=== PATIENT | female | born 1980 | race Caucasian/White ===

== ENCOUNTER 2017-03-08 05:04 | Emergency (ER) | payer OTHER ==
[2017-03-08] MEDS ORDERED: PROMETHAZINE HCL 25 MG/ML INJ IVP ONE (05:10)
[2017-03-08] MEDS ORDERED: FAMOTIDINE 20 MG/NACL 50 ML IV ONE (05:10)
[2017-03-08] MEDS ORDERED: NS 1,000 ML IV ONE ×2 (05:10)
--- NOTE | 2017-03-08 05:17 | CPEKG ---
Heart Rate: 51 RR Interval: 1176 P-R Interval: 208 QRSD Interval: 92 QT Interval: 460 QTC Interval: 424 P Rosie: 66 QRS Rosie: 69 T Wave Rosie: 47 EKG Severity - NORMAL ECG - EKG Impression: SINUS RHYTHM Electronically Signed By: Rebecca Mota 08-Mar-2017 06:19:45
[2017-03-08] MEDS ORDERED: MAG HYDROX/AL HYDROX/SIMETH 30 ML UDCUP PO ONE (05:22)
--- NOTE | 2017-03-08 05:22 | EDPHY ---
H & P Time Seen by Provider: 03/08/17 05:10 HPI/ROS: HPI The patient presents brought in by ambulance for abdominal pain, nausea and vomiting which began at about 1:00 a.m.. Last night, she went out to dinner and had about 3 alcoholic drinks. She awoke with this pain which is in her epigastric region, radiates toward her back, is crampy and achy in nature and is severe. She then began vomiting. She denies any dark or bloody stools. She has a history of gastric ulcer. She is status post cholecystectomy when she was 24. In the ambulance, she was given Zofran with little improvement in her symptoms. She was noted to be bradycardic in the 30s transiently. REVIEW OF SYSTEMS Constitutional: No fever, no chills. Eyes: No discharge. ENT: No sore throat. Cardiovascular: No chest pain, no palpitations. Respiratory: No cough, no shortness of breath. Gastrointestinal: See HPI Genitourinary: No hematuria. Musculoskeletal: No back pain. Skin: No rashes. Neurological: No headache. PMHx: Reports history of SLE, mixed connective tissue disease, fibromyalgia, gastric ulcers, cholecystectomy complicated by retained common bile duct stone in [place] Soc Hx: Housed, occasional alcohol use, smoking history, uses marijuana PHYSICAL General Appearance: Alert, uncomfortable appearing, writhing in the gurney Eyes: Pupils equal and round no pallor or injection ENT, Mouth: Mucous membranes moist Respiratory: There are no retractions, lungs are clear to auscultation Cardiovascular: Regular rate and rhythm Gastrointestinal: Abdomen is soft with tenderness in the epigastrium without any rebound or guarding Neurological: A&O, moves all extremities Skin: Warm and dry, no rashes Musculoskeletal: Neck is supple non tender Extremities: symmetrical, full range of motion Psychiatric: Patient is oriented X 3, there is no agitation Source: Patient, EMS Exam Limitations: No limitations Constitutional: Initial Vital Signs Temperature (C) 36.4 C 03/08/17 05:10 Heart Rate 47 L 03/08/17 05:10 Respiratory Rate 18 03/08/17 05:10 Blood Pressure 131/87 H 03/08/17 05:10 O2 Sat (%) 98 03/08/17 05:10 O2 Delivery Mode Nasal Cannula O2 (L/minute) 2 Allergies/Adverse Reactions: Penicillins Allergy (Verified 03/08/17 05:12) Home Medications: Medication Instructions Recorded Buprenorphine 03/08/17 Medical Decision Making Differential Diagnosis: This is a 36-year-old female with multiple medical problems including gastric ulcer, status post cholecystectomy who presents with severe abdominal pain after drinking alcohol. On exam, she has normal vital signs, she is tender in the epigastrium without rebound or guarding. Differential diagnosis includes gastritis, pancreatitis, perforated ulcer. In the emergency department, the patient was given IV fluids for her vomiting and antiemetics as well as pain medications. This caused complete resolution of her symptoms. Labs were checked and did reveal a mild transaminitis, otherwise normal. She eventually felt well enough to go home. She declines any medications. She will follow up with her general accountant. - Data Points Laboratory Results: Laboratory Results 03/08/17 05:20 03/08/17 05:20 03/08/17 03/08/17 05:20 05:20 WBC 7.01 10^3/uL 10^3/uL (3.80-9.50) RBC 4.44 10^6/uL 10^6/uL (4.18-5.33) Hgb 13.9 g/dL g/dL (12.6-16.3) Hct 39.5 % % (38.0-47.0) MCV 89.0 fL fL (81.5-99.8) MCH 31.3 pg pg (27.9-34.1) MCHC 35.2 g/dL g/dL (32.4-36.7) RDW 13.5 % % (11.5-15.2) Plt Count 209 10^3/uL 10^3/uL (150-400) MPV 10.0 fL fL (8.7-11.7) Neut % (Auto) 74.0 % % (39.3-74.2) Lymph % (Auto) 20.0 % % (15.0-45.0) [place] % (Auto) 4.3 % L % (4.5-13.0) Eos % (Auto) 0.7 % % (0.6-7.6) Baso % (Auto) 0.9 % % (0.3-1.7) Nucleat RBC Rel Count 0.0 % % (0.0-0.2) Absolute Neuts (auto) 5.19 10^3/uL 10^3/uL (1.70-6.50) Absolute Lymphs (auto) 1.40 10^3/uL 10^3/uL (1.00-3.00) Absolute Monos (auto) 0.30 10^3/uL 10^3/uL (0.30-0.80) Absolute Eos (auto) 0.05 10^3/uL 10^3/uL (0.03-0.40) Absolute Basos (auto) 0.06 10^3/uL 10^3/uL (0.02-0.10) Absolute Nucleated RBC 0.00 10^3/uL 10^3/uL (0-0.01) Immature Gran % 0.1 % % (0.0-1.1) Immature Gran # 0.01 10^3/uL 10^3/uL (0.00-0.10) Sodium 141 mEq/L mEq/L (134-144) Potassium 4.4 mEq/L mEq/L (3.5-5.2) Chloride 109 mEq/L mEq/L (97-110) Carbon Dioxide 19 mEq/l L mEq/l (22-31) Anion Gap 13 mEq/L mEq/L (8-16) BUN 13 mg/dL mg/dL (7-23) Creatinine 0.7 mg/dL mg/dL (0.6-1.0) Estimated GFR > 60 Glucose 96 mg/dL mg/dL (70-100) Calcium 9.5 mg/dL mg/dL (8.5-10.4) Total Bilirubin 0.3 mg/dL mg/dL (0.1-1.4) Conjugated Bilirubin 0.2 mg/dL mg/dL (0.0-0.5) Unconjugated Bilirubin 0.1 mg/dL mg/dL (0.0-1.1) AST 48 IU/L H IU/L (14-46) ALT 73 IU/L H IU/L (9-52) Alkaline Phosphatase 48 IU/L IU/L (38-126) Total Protein 7.3 g/dL g/dL (6.3-8.2) Albumin 4.5 g/dL g/dL (3.5-5.0) Lipase 106 IU/L IU/L (23-300) Medications Given: Discontinued Medications Al Hydroxide/Mg Hydroxide (Maalox Susp) 30 ml PO EDNOW ONE Stop: 03/08/17 05:23 Last Admin: 03/08/17 05:41 Dose: 30 ml Haloperidol Lactate (Haldol Injection) 2.5 mg IVP EDNOW ONE Stop: 03/08/17 05:30 Last Admin: 03/08/17 05:31 Dose: 2.5 mg Hydromorphone HCl (Dilaudid) 0.5 mg IVP EDNOW ONE Stop: 03/08/17 06:18 Last Admin: 03/08/17 06:18 Dose: 0.5 mg Hydromorphone HCl (Dilaudid) 0.5 mg IVP EDNOW ONE Stop: 03/08/17 06:40 Last Admin: 03/08/17 06:39 Dose: 0.5 mg Sodium Chloride (Ns) 1,000 mls @ 0 mls/hr IV EDNOW ONE; Wide Open PRN Reason: Protocol Stop: 03/08/17 05:11 Last Admin: 03/08/17 05:34 Dose: 1,000 mls Sodium Chloride (Ns) 1,000 mls @ 0 mls/hr IV EDNOW ONE; Wide Open PRN Reason: Protocol Stop: 03/08/17 05:11 Last Admin: 03/08/17 05:35 Dose: 1,000 mls Famotidine/Sodium Chloride (Pepcid 20 Mg (Premix)) 50 mls @ 200 mls/hr IV EDNOW ONE Stop: 03/08/17 05:24 Last Admin: 03/08/17 05:27 Dose: 50 mls Lidocaine (Lidocaine 2% Viscous) 5 ml PO EDNOW ONE Stop: 03/08/17 05:45 Last Admin: 03/08/17 05:45 Dose: 5 ml Promethazine HCl (Phenergan) 12.5 mg IVP EDNOW ONE Stop: 03/08/17 05:11 Last Admin: 03/08/17 05:26 Dose: 12.5 mg Departure - Departure Disposition: Home, Routine, Self-Care Clinical Impression: Upper abdominal pain Vomiting Qualifiers: Vomiting type: unspecified Vomiting Intractability: non-intractable Nausea presence: with nausea Qualified Code(s): R11.2 - Nausea with vomiting, unspecified Condition: Good Instructions: Gastritis (ED), Diet for Stomach Ulcers and Gastritis (ED) Additional Instructions: It seems that your pain is coming from her stomach. This could be caused by gastritis or stomach ulcer. You should avoid spicy or acidic foods and alcohol. You should also avoid coffee. You should follow up with your general accountant in the next few days. Please return to the emergency room if your worse in any way. You can take Tums or Maalox [id number] to help with your symptoms. Referrals: Gastroenterology [facility] [Provider Group] - As per Instructions
[2017-03-08] MEDS ORDERED: LIDOCAINE 2% VISCOUS 15 ML UDCUP ONE (05:23)
[2017-03-08] MEDS ORDERED: MAG HYDROX/AL HYDROX/SIMETH 30 ML UDCUP ONE (05:23)
[2017-03-08 05:27] LABS: % IMMATURE GRANULYOCYTES 0.1 % (0.0-1.1); ABSOLUTE IMMATURE GRANULOCYTES 0.01 10^3/uL (0.00-0.10); ADD DIFF? NO; ADD MORPH? NO; ADD SCAN? NO; ATYPICAL LYMPHOCYTE FLAG 10 (0-99); FRAGMENT RBC FLAG 0 (0-99); HEMATOCRIT 39.5 % (38.0-47.0); HEMOGLOBIN 13.9 g/dL (12.6-16.3); LEFT SHIFT FLG 0 (0-99); LIPEMIA HEMOLYSIS FLAG 90 (0-99); MEAN CELL HEMOGLOBIN 31.3 pg (27.9-34.1); MEAN CELL HEMOGLOBIN CONCENTR. 35.2 g/dL (32.4-36.7); PLATELET CLUMPS FLAG 0 (0-99); PLATELET COUNT 209 10^3/uL (150-400); RED BLOOD CELL COUNT 4.44 10^6/uL (4.18-5.33); RED CELL DISTRIBUTION WIDTH 13.5 % (11.5-15.2)
[2017-03-08] MEDS ORDERED: HALOPERIDOL LACT 5 MG/ML INJ IVP ONE (05:29)
[2017-03-08] MEDS ORDERED: HALOPERIDOL LACT 5 MG/ML INJ ONE (05:29)
[2017-03-08 05:39] LABS: ALANINE AMINOTRANSFERASE 73 IU/L (9-52); ALBUMIN 4.5 g/dL (3.5-5.0); ALKALINE PHOSPHATASE 48 IU/L (38-126); ANION GAP 13 mEq/L (8-16); ASPARTATE AMINOTRANSFERASE 48 IU/L (14-46); BILIRUBIN,TOTAL 0.3 mg/dL (0.1-1.4); BILIRUBIN-CONJUGATED 0.2 mg/dL (0.0-0.5); BILIRUBIN-UNCONJUGATED 0.1 mg/dL (0.0-1.1); CALCIUM 9.5 mg/dL (8.5-10.4); CARBON DIOXIDE 19 mEq/l (22-31); CHLORIDE 109 mEq/L (97-110); CREATININE 0.7 mg/dL (0.6-1.0); GLOMERULAR FILTRATION RATE > 60; GLUCOSE 96 mg/dL (70-100); POTASSIUM 4.4 mEq/L (3.5-5.2); SODIUM 141 mEq/L (134-144); TOTAL PROTEIN 7.3 g/dL (6.3-8.2)
[2017-03-08] MEDS ORDERED: LIDOCAINE 2% VISCOUS 15 ML UDCUP PO ONE (05:44)
[2017-03-08 05:47] VITALS: RESP 16
[2017-03-08] MEDS ORDERED: HYDROmorphONE/DILAUDID 1 MG/ML INJ ONE (06:14)
[2017-03-08] MEDS ORDERED: HYDROmorphONE/DILAUDID 1 MG/ML INJ IVP ONE ×2 (06:17→06:39)
[2017-03-08 06:55] VITALS: BP 106/69; PULSE 63; TEMP 98.1; O2SAT 97
== END 2017-03-08 06:56 | disposition home or self-care (01) ==
LOC: EDUNIT#
DX: R11.2 Nausea with vomiting, unspecified (principal); R10.10 Upper abdominal pain, unspecified; E86.9 Volume depletion, unspecified
CPT/HCPCS: 96365; J1170; J2550

== ENCOUNTER 2017-07-19 09:35 | Emergency (ER) | payer OTHER ==
[2017-07-19] MEDS ORDERED: NS 1,000 ML IV ONE (09:55)
--- NOTE | 2017-07-19 09:59 | CPEKG ---
Heart Rate: 74 RR Interval: 811 P-R Interval: 176 QRSD Interval: 98 QT Interval: 412 QTC Interval: 457 P Napoleon: 65 QRS Napoleon: 71 T Wave Napoleon: 19 EKG Severity - NORMAL ECG - EKG Impression: SINUS RHYTHM Electronically Signed By: Brando Holley 21-Jul-2017 06:08:05
[2017-07-19 10:02] LABS: PLATELET COUNT 259 10^3/uL (150-400)
[2017-07-19] MEDS ORDERED: LIDOCAINE 2% VISCOUS 15 ML UDCUP ONE (10:02)
[2017-07-19] MEDS ORDERED: HYOSCYAMINE SULFATE 0.125 MG TAB ONE (10:02)
[2017-07-19] MEDS ORDERED: ONDANSETRON 4 MG/2 ML VIAL ONE (10:02)
[2017-07-19] MEDS ORDERED: MAG HYDROX/AL HYDROX/SIMETH 30 ML UDCUP ONE (10:02)
[2017-07-19] MEDS ORDERED: HYOSCYAMINE SULFATE 0.125 MG TAB PO ONE (10:07)
[2017-07-19] MEDS ORDERED: LIDOCAINE 2% VISCOUS 15 ML UDCUP PO ONE (10:07)
[2017-07-19] MEDS ORDERED: MAG HYDROX/AL HYDROX/SIMETH 30 ML UDCUP PO ONE (10:07)
[2017-07-19] MEDS ORDERED: ONDANSETRON 4 MG/2 ML VIAL IVP ONE (10:07)
[2017-07-19] MEDS ORDERED: PROMETHAZINE HCL 25 MG/ML INJ IVP ONE (10:28)
--- NOTE | 2017-07-19 10:37 | EDPHY ---
HPI/HX/ROS/PE/MDM Narrative: CHIEF COMPLAINT: Vomiting, abdominal pain HPI: The patient is a 37 y/o female who has a history of mixed connective tissue disorder and several autoimmune diseases who presents with persistent projectile vomiting onset this morning. Her connective tissue issues have GI involvement and has led to bowel obstructions and ulcers in the past. She discontinued all medications over a year ago and is "using holistic measures and pot" only with some control of her symptoms. Over the past few days she has felt bloated and uncomfortable and reduced her food intake, but this morning she developed projectile vomiting, hot flashes, and epigastric pain. She has had numerous episodes of vomiting and dry heaving over the last few hours. She took 60mg Nexium this morning without improvement in symptoms. She denies fever , hematemesis, urinary symptoms, diarrhea. She has had similar symptoms previously and was treated successfully with GI cocktails and antiemetics. REVIEW OF SYSTEMS: Aside from elements discussed in the HPI, a comprehensive 10-point review of systems was reviewed and is negative. PMH: Mixed connective tissue disease with multiple autoimmune diseases with GI involvement leading to bowel obstructions, ulcers, and other issues. IBD. 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 PHYSICAL EXAM: General:Patient is alert, appears uncomfortable. ENT:Eyes are normal to inspection. ENT inspection normal. Neck: Normal inspection. Full range of motion. Respiratory:No respiratory distress. Breath sounds normal bilaterally. Cardiovascular: Regular rate and rhythm. Strong peripheral pulses. Normal cap refill. Abdomen:The abdomen has diffuse mild tenderness to palpation. There are no peritoneal signs. Back: Normal to inspection. No tenderness to palpation. Skin: Normal color. No rash. Warm and dry. Extremities: Normal appearance. Full range of motion. Neuro: Oriented x3. Normal motor function. Normal sensory function. ED Course: This is a 37 y/o female with a mixed connective tissue disorder who presents with several days of abdominal bloating and a few hours of projectile vomiting and epigastric pain. She has mild diffuse abdominal tenderness on exam. She reports her symptoms are consistent with past exacerbations of her multiple ("15 ") autoimmune diseases and is requesting symptomatic treatment. Plan for IV, labs, EKG, abdominal x-ray, and symptom management with GI cocktail, 4mg IV Zofran, and 1L IV NS. The 12 lead EKG was interpreted by myself. Sinus rhythm rate 74. See hard copy and/or "tracemaster" electronic copy for interpretation. 12.5mg IV Phenergan ordered for continued nausea and vomiting. Reassessed patient and discussed work up. She is feeling much better. Her abdomen is benign. Her abdominal x-ray shows no clear obstruction and labs are unremarkable. She will be discharged with a script for Zofran. Recommended follow up with her GI doctor. Return precautions discussed. She is comfortable with discharge plan. MDM: This patient presents with acute on chronic abdominal pain and vomiting similar to prior episodes. She is hesitant to go undergo extensive workup and requests that we focus on symptom management here in the emergency department. She did agree to an x-ray. We were able to achieve good symptomatic control with IV fluids, antiemetics and pain medicine. The patient requests discharge from the ER without further workup. - Data Points Imaging Results: Imaging Impressions Abdomen X-Ray 07/19/17 11:36 Impression: Mildly abnormal bowel gas pattern with no free air identified. Imaging: I viewed and interpreted images myself Laboratory Results: Laboratory Results 07/19/17 09:50 07/19/17 09:50 07/19/17 07/19/17 07/19/17 09:50 09:50 09:50 WBC 7.29 10^3/uL 10^3/uL (3.80-9.50) RBC 5.08 10^6/uL 10^6/uL (4.18-5.33) Hgb 16.1 g/dL g/dL (12.6-16.3) Hct 45.0 % % (38.0-47.0) MCV 88.6 fL fL (81.5-99.8) MCH 31.7 pg pg (27.9-34.1) MCHC 35.8 g/dL g/dL (32.4-36.7) RDW 13.2 % % (11.5-15.2) Plt Count 259 10^3/uL 10^3/uL (150-400) MPV 9.6 fL fL (8.7-11.7) Neut % (Auto) 67.6 % % (39.3-74.2) Lymph % (Auto) 22.2 % % (15.0-45.0) [place] % (Auto) 7.0 % % (4.5-13.0) Eos % (Auto) 1.5 % % (0.6-7.6) Baso % (Auto) 1.4 % % (0.3-1.7) Nucleat RBC Rel Count 0.0 % % (0.0-0.2) Absolute Neuts (auto) 4.93 10^3/uL 10^3/uL (1.70-6.50) Absolute Lymphs (auto) 1.62 10^3/uL 10^3/uL (1.00-3.00) Absolute Monos (auto) 0.51 10^3/uL 10^3/uL (0.30-0.80) Absolute Eos (auto) 0.11 10^3/uL 10^3/uL (0.03-0.40) Absolute Basos (auto) 0.10 10^3/uL 10^3/uL (0.02-0.10) Absolute Nucleated RBC 0.00 10^3/uL 10^3/uL (0-0.01) Immature Gran % 0.3 % % (0.0-1.1) Immature Gran # 0.02 10^3/uL 10^3/uL (0.00-0.10) Sodium 142 mEq/L mEq/L (135-145) Potassium 5.7 mEq/L H mEq/L (3.5-5.2) Chloride 105 mEq/L mEq/L (97-110) Carbon Dioxide 18 mEq/l L mEq/l (22-31) Anion Gap 19 mEq/L H mEq/L (8-16) BUN 9 mg/dL mg/dL (7-23) Creatinine 0.7 mg/dL mg/dL (0.6-1.0) Estimated GFR > 60 Glucose 102 mg/dL H mg/dL (70-100) Calcium 10.4 mg/dL mg/dL (8.5-10.4) Total Bilirubin 1.1 mg/dL mg/dL (0.1-1.4) Conjugated Bilirubin 0.6 mg/dL H mg/dL (0.0-0.5) Unconjugated Bilirubin 0.5 mg/dL mg/dL (0.0-1.1) AST 60 IU/L H IU/L (14-46) ALT 63 IU/L H IU/L (9-52) Alkaline Phosphatase 58 IU/L IU/L (38-126) Total Protein 8.3 g/dL H g/dL (6.3-8.2) Albumin 5.5 g/dL H g/dL (3.5-5.0) Lipase 59 IU/L IU/L (23-300) Beta HCG, Qual NEGATIVE Specimen Hemolysis 127 Medications Given: Discontinued Medications Al Hydroxide/Mg Hydroxide (Maalox Susp) 30 ml PO EDNOW ONE Stop: 07/19/17 10:08 Last Admin: 07/19/17 10:10 Dose: 30 ml Hyoscyamine Sulfate (Levsin, Hyomax-Sl) 0.25 mg PO EDNOW ONE Stop: 07/19/17 10:08 Last Admin: 07/19/17 10:08 Dose: 0.25 mg Sodium Chloride (Ns) 1,000 mls @ 0 mls/hr IV EDNOW ONE; Wide Open PRN Reason: Protocol Stop: 07/19/17 09:56 Last Admin: 07/19/17 10:08 Dose: 1,000 mls Lidocaine (Lidocaine 2% Viscous) 5 ml PO EDNOW ONE Stop: 07/19/17 10:08 Last Admin: 07/19/17 10:09 Dose: 5 ml Ondansetron HCl (Zofran) 4 mg IVP EDNOW ONE Stop: 07/19/17 10:08 Last Admin: 07/19/17 10:08 Dose: 4 mg Promethazine HCl (Phenergan) 12.5 mg IVP EDNOW ONE Stop: 07/19/17 10:29 Last Admin: 07/19/17 10:54 Dose: 12.5 mg General Time Seen by Provider: 07/19/17 09:54 Initial Vital Signs: Initial Vital Signs Temperature (C) 36.5 C 07/19/17 09:35 Heart Rate 80 07/19/17 09:35 Respiratory Rate 24 H 07/19/17 09:35 Blood Pressure 130/81 H 07/19/17 09:35 O2 Sat (%) 96 07/19/17 09:35 O2 Delivery Mode Room Air Allergies/Adverse Reactions: Penicillins Allergy (Mild, Verified 07/19/17 09:39) Rash Home Medications: Medication Instructions Recorded Butran Patch 07/19/17 Ondansetron Odt [Zofran Odt] 4 mg PO Q4PRN PRN #10 tab 07/19/17 Departure - Departure Disposition: Home, Routine, Self-Care Clinical Impression: Abdominal pain, Vomiting Condition: Good Instructions: Ondansetron (By mouth), Acute Nausea and Vomiting (ED), Abdominal Pain (ED) Additional Instructions: 1. Take Zofran as prescribed when needed for nausea and vomiting. 2. Follow up with your roll coverer in the next week. 3. Return to the ED for severe pain, inability to eat, intractable vomiting, inability to have a bowel movement, or other worsening of condition. Referrals: NONE *PRIMARY CARE P,. [Primary Care Provider] - As per Instructions Carlos Wood MD [Medical Doctor] - As per Instructions Prescriptions: Ondansetron Odt [Zofran Odt] 4 mg PO Q4PRN PRN #10 tab PRN Reason: Nausea Report Scribed for: Phillip Hoffmann Report Scribed by: Lilli Pena Date of Report: 07/19/17 Time of Report: 11:13 Physician Review and Approval Statement: Portions of this note were transcribed by an ED scribe. I personally performed the history, physical exam, and medical decision making; and confirm the accuracy of the information in the transcribed note.
[2017-07-19 12:34] VITALS: BP 108/80; PULSE 58; RESP 16; TEMP 98.4; O2SAT 94
== END 2017-07-19 12:36 | disposition home or self-care (01) ==
DX: R10.84 Generalized abdominal pain (principal); R11.10 Vomiting, unspecified; E86.9 Volume depletion, unspecified
CPT/HCPCS: 96374; J2405; J2550

== ENCOUNTER 2018-09-05 02:49 | Emergency (ER) | payer OTHER ==
[2018-09-05] MEDS ORDERED: ONDANSETRON 4 MG/2 ML VIAL ONE (03:31)
[2018-09-05] MEDS ORDERED: ONDANSETRON 4 MG/2 ML VIAL IVP ONE ×2 (03:38→06:11)
[2018-09-05] MEDS ORDERED: NS 1,000 ML IV ONE (03:38)
[2018-09-05 03:49] LABS: PLATELET COUNT 208 10^3/uL (150-400)
[2018-09-05] MEDS ORDERED: FAMOTIDINE 20 MG/2 ML SDV IVP ONE (04:07)
[2018-09-05] MEDS ORDERED: HYOSCYAMINE SULFATE 0.125 MG TAB PO ONE (04:07)
[2018-09-05] MEDS ORDERED: MAG HYDROX/AL HYDROX/SIMETH 30 ML UDCUP PO ONE (04:07)
[2018-09-05] MEDS ORDERED: LIDOCAINE 2% VISCOUS 15 ML UDCUP PO ONE (04:07)
--- NOTE | 2018-09-05 04:10 | EDPHY ---
H & P Stated Complaint: Abdominal Pain N/V Time Seen by Provider: 09/05/18 03:53 HPI/ROS: HPI The patient presents with abdominal pain, nausea and vomiting for the last 2 days, getting progressively worse. He describes epigastric cramping pain which radiates throughout her back associated with abdominal bloating. She has had nonbloody nonbilious emesis with this. She was in the emergency department on July 19 for similar and improved with symptomatic relief. 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 She reports that she has multiple autoimmune diseases and is being followed by a natural path now and has been well managed for the last 4.5 years. REVIEW OF SYSTEMS 10 systems were reviewed and negative with the exception of the elements mentioned in the history of present illness. PMHx: Reported multiple autoimmune diseases including mixed connective tissue disease, autoimmune pancreatitis Soc Hx: Here with her partner, uses marijuana to control her symptoms PHYSICAL General Appearance: Alert, shaking in pain Eyes: Pupils equal and round no pallor or injection ENT, Mouth: Mucous membranes moist Respiratory: There are no retractions, lungs are clear to auscultation Cardiovascular: Regular rate and rhythm Gastrointestinal: Abdomen is soft, mildly distended, tender in the epigastrium without rebound or guarding Neurological: A&O, moves all extremities Skin: Warm and dry, no rashes Musculoskeletal: Neck is supple non tender Extremities: symmetrical, full range of motion Psychiatric: Patient is oriented X 3, there is no agitation Source: Patient Exam Limitations: No limitations - Personal History LMP (Females 10-55): 1-7 Days Ago Current Tetanus/Diphtheria Vaccine: Yes Current Tetanus Diphtheria and Acellular Pertussis (TDAP): Yes - Medical/Surgical History Hx Asthma: No Hx Chronic Respiratory Disease: No Hx Diabetes: No Hx Cardiac Disease: No Hx Renal Disease: No Hx Cirrhosis: No Hx Alcoholism: No Hx HIV/AIDS: No Hx Splenectomy or Spleen Trauma: No Other PMH: "auto immune issues", GI issues, diverticulitis by hx,choley, ulcers - Social History Smoking Status: Current every day smoker Constitutional: Initial Vital Signs Temperature (C) 37.3 C 09/05/18 02:53 Heart Rate 76 09/05/18 02:53 Respiratory Rate 18 09/05/18 02:53 Blood Pressure 134/67 H 09/05/18 02:53 O2 Sat (%) 95 09/05/18 02:53 O2 Delivery Mode Room Air Allergies/Adverse Reactions: Penicillins Allergy (Mild, Verified 07/19/17 09:39) Rash Home Medications: Medication Instructions Recorded BUPRENORPHINE HCL 09/05/18 Medical Decision Making Differential Diagnosis: 38-year-old female with reported history of autoimmune disease, autoimmune pancreatitis, IBD, status post cholecystectomy who presents from home with 2 days of abdominal pain, nausea, vomiting. Here, she is uncomfortable appearing though vital signs are normal. She does have epigastric tenderness. Prior to my assessment she has received fluids and Zofran with some improvement in her symptoms. She requests a GI cocktail. Differential diagnosis includes gastritis, pancreatitis, IBD, choledocholithiasis. Patient was given GI cocktail and famotidine with much improvement in her symptoms. Labs were reviewed and were unremarkable. I suspect she may be suffering from gastritis, though would also consider cannabinoid hyperemesis syndrome. She feels well enough to go home though requests a 2nd dose of Dilaudid. I feel this is reasonable. Her repeat abdominal exam was benign. - Data Points Laboratory Results: Laboratory Results 09/05/18 03:30 09/05/18 03:30 09/05/18 09/05/18 09/05/18 03:30 03:30 03:30 WBC 11.95 10^3/uL H 10^3/uL (3.80-9.50) RBC 4.34 10^6/uL 10^6/uL (4.18-5.33) Hgb 13.1 g/dL g/dL (12.6-16.3) Hct 37.5 % L % (38.0-47.0) MCV 86.4 fL fL (81.5-99.8) MCH 30.2 pg pg (27.9-34.1) MCHC 34.9 g/dL g/dL (32.4-36.7) RDW 14.0 % % (11.5-15.2) Plt Count 208 10^3/uL 10^3/uL (150-400) MPV 10.2 fL fL (8.7-11.7) Neut % (Auto) 83.4 % H % (39.3-74.2) Lymph % (Auto) 9.9 % L % (15.0-45.0) [place] % (Auto) 5.6 % % (4.5-13.0) Eos % (Auto) 0.2 % L % (0.6-7.6) Baso % (Auto) 0.6 % % (0.3-1.7) Nucleat RBC Rel Count 0.0 % % (0.0-0.2) Absolute Neuts (auto) 9.97 10^3/uL H 10^3/uL (1.70-6.50) Absolute Lymphs (auto) 1.18 10^3/uL 10^3/uL (1.00-3.00) Absolute Monos (auto) 0.67 10^3/uL 10^3/uL (0.30-0.80) Absolute Eos (auto) 0.02 10^3/uL L 10^3/uL (0.03-0.40) Absolute Basos (auto) 0.07 10^3/uL 10^3/uL (0.02-0.10) Absolute Nucleated RBC 0.00 10^3/uL 10^3/uL (0-0.01) Immature Gran % 0.3 % % (0.0-1.1) Immature Gran # 0.04 10^3/uL 10^3/uL (0.00-0.10) Sodium 139 mEq/L mEq/L (135-145) Potassium 4.2 mEq/L mEq/L (3.5-5.2) Chloride 107 mEq/L mEq/L (97-110) Carbon Dioxide 22 mEq/l mEq/l (22-31) Anion Gap 10 mEq/L mEq/L (6-14) BUN 8 mg/dL mg/dL (7-23) Creatinine 0.7 mg/dL mg/dL (0.6-1.0) Estimated GFR > 60 Glucose 104 mg/dL H mg/dL (70-100) Calcium 9.5 mg/dL mg/dL (8.5-10.4) Total Bilirubin 0.8 mg/dL mg/dL (0.1-1.4) Conjugated Bilirubin 0.4 mg/dL mg/dL (0.0-0.5) Unconjugated Bilirubin 0.4 mg/dL mg/dL (0.0-1.1) AST 36 IU/L IU/L (14-46) ALT 48 IU/L IU/L (9-52) Alkaline Phosphatase 48 IU/L IU/L (38-126) Total Protein 7.4 g/dL g/dL (6.3-8.2) Albumin 4.7 g/dL g/dL (3.5-5.0) Lipase 33 IU/L IU/L (23-300) Medications Given: Discontinued Medications Al Hydroxide/Mg Hydroxide (Maalox Susp) 30 ml PO ONCE ONE Stop: 09/05/18 04:08 Last Admin: 09/05/18 04:21 Dose: 30 ml Famotidine (Pepcid) 20 mg IVP EDNOW ONE Stop: 09/05/18 04:08 Last Admin: 09/05/18 04:21 Dose: 20 mg Hyoscyamine Sulfate (Levsin, Hyomax-Sl) 0.125 mg PO EDNOW ONE Stop: 09/05/18 04:08 Last Admin: 09/05/18 04:21 Dose: 0.125 mg Sodium Chloride (Ns) 1,000 mls @ 0 mls/hr IV EDNOW ONE; Wide Open PRN Reason: Protocol Stop: 09/05/18 03:39 Last Admin: 09/05/18 03:39 Dose: 1,000 mls Lidocaine (Lidocaine 2% Viscous) 15 ml PO ONCE ONE Stop: 09/05/18 04:08 Last Admin: 09/05/18 04:21 Dose: 15 ml Ondansetron HCl (Zofran) 4 mg IVP EDNOW ONE Stop: 09/05/18 03:39 Last Admin: 09/05/18 03:39 Dose: 4 mg Ondansetron HCl (Zofran) 4 mg IVP EDNOW ONE Stop: 09/05/18 06:12 Last Admin: 09/05/18 06:17 Dose: 4 mg Ondansetron HCl (Zofran Odt 4 Mg Prepack#2) 1 btl TAKEHOME EDNOW ONE Stop: 09/05/18 06:12 Last Admin: 09/05/18 06:17 Dose: 1 btl Departure - Departure Disposition: Home, Routine, Self-Care Clinical Impression: Abdominal pain Qualifiers: Abdominal location: epigastric Qualified Code(s): R10.13 - Epigastric pain Nausea & vomiting Qualifiers: Vomiting type: unspecified Vomiting Intractability: non-intractable Qualified Code(s): R11.2 - Nausea with vomiting, unspecified Condition: Good Instructions: Acute Nausea and Vomiting (ED) Additional Instructions: Please return to the emergency department if your worse in any way. Referrals: NONE *PRIMARY CARE P,. [Primary Care Provider] - As per Instructions
[2018-09-05] MEDS ORDERED: ONDANSETRON 4MG PREPACK#2 BTL TAKEHOME ONE (06:11)
[2018-09-05 06:22] VITALS: BP 99/66
== END 2018-09-05 06:23 | disposition home or self-care (01) ==
DX: R10.13 Epigastric pain (principal); R11.2 Nausea with vomiting, unspecified; E86.9 Volume depletion, unspecified; M35.9 Systemic involvement of connective tissue, unspecified; Z90.49 Acquired absence of other specified parts of digestive tract
CPT/HCPCS: 96374; J2405